=== PATIENT | female | born 1990 | race African-American/Black ===

== ENCOUNTER 2018-04-05 07:45 | Outpatient (CLI) | payer OTHER ==
[~2018-04-05 07:45] MED LIST: PROTONIX20 MG PO
== END 2018-04-05 07:53 | disposition home or self-care (01) ==
LOC: SONOGRAMA 07:45 → MAMO-SONO 08:15
DX: R10.9 Unspecified abdominal pain (principal)

== ENCOUNTER 2022-02-09 07:21 | Outpatient (CLI) | payer OTHER | END 2022-02-09 07:33 | disposition home or self-care (01) | LOC: SONOGRAMA 07:21 | DX: R94.5 Abnormal results of liver function studies (principal) ==

== ENCOUNTER 2022-08-19 12:02 | Outpatient (CLI) | payer OTHER | END 2022-08-19 12:12 | disposition home or self-care (01) | LOC: SONOGRAMA 12:02 | DX: R10.2 Pelvic and perineal pain (principal) ==

== ENCOUNTER 2023-10-17 10:57 | Outpatient (CLI) | payer OTHER | END 2023-10-17 11:09 | disposition home or self-care (01) | LOC: SONOGRAMA 10:57 | DX: R59.0 Localized enlarged lymph nodes (principal) ==

== ENCOUNTER 2024-08-16 10:23 | Outpatient (CLI) | payer OTHER | END 2024-08-16 10:37 | disposition home or self-care (01) | LOC: SONOGRAMA 10:23 | PROVIDERS: ATTEND Obstetrics & Gynecology | DX: D25.9 Leiomyoma of uterus, unspecified (principal); N84.0 Polyp of corpus uteri ==

== ENCOUNTER 2024-09-11 07:26 | Outpatient (CLI) | payer OTHER | END 2024-09-11 07:35 | disposition home or self-care (01) | LOC: SONOGRAMA 07:26 | DX: R10.13 Epigastric pain (principal) ==